=== PATIENT | female | born 1955 | race Caucasian/White ===

== ENCOUNTER 2024-03-27 11:16 | Outpatient (AMB) | payer OTHER, SELFPAY ==
--- NOTE | 2024-03-27 11:53 | MHC.PC.OV ---
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 Having open heart surgery on 04/06/24 at [facility] Required: No Allergies No Known Allergies Allergy (Verified 03/27/24 11:53) Tobacco use date assessed: 03/27/24 Fall risk assessment: No Falls in past year Last assessed Fall Risk: 03/27/24 Dental Screening Dental Screen Date: 03/27/24 Did you have a dental visit in the last 12 months?: Yes Did you have a dental problem in the last 6 months where you did not have access to dental care?: No Was dental information given to patient?: Patient has dentist HPI HPI Comments History of Present Illness Details The patient is a 68-year-old female with a medical history of severe aortic stenosis, mild pulmonary hypertension hyperlipidemia, anemia, insomnia presenting to [facility]. She is transferring from [facility]. Cardiovascular: She was recently admitted to [facility] for an elective right heart catheterization as part of AVR workup. 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 09/30/2018 colonoscopy ACCOUNTS RECEIVABLE ACCOUNTANT: Mammo-03/2023 ROS CONSTITUTIONAL: Denies weight loss, fever and chills. HEENT: Denies changes in vision and hearing. RESPIRATORY: Denies SOB and cough. CV: Denies palpitations and CP GI: Denies abdominal pain, nausea, vomiting and diarrhea. : Denies dysuria and urinary frequency. MSK: Denies new myalgia and joint pain. SKIN: Denies rash and pruritus. NEUROLOGICAL: Denies headache PSYCHIATRIC: Denies recent changes in mood. PHYSICAL EXAM: GENERAL: Alert and oriented x 3. NAD EYES: EOMI. Anicteric. HENT: Moist mucous membranes. No scleral icterus. No cervical lymphadenopathy. LUNGS: Clear to auscultation bilaterally. CARDIOVASCULAR: Regular rate and rhythm. No murmur. No JVD. ABDOMEN: Soft, non-tender +bs EXTREMITIES: No edema. Non-tender. SKIN: No rashes or lesions. Warm. NEUROLOGIC: No focal neurological deficits. CN II-XII grossly intact PSYCHIATRIC: Cooperative. Appropriate mood and affect [facility] Medical History (Updated 04/06/24 @ 09:51 by Kathy Granger MD) Aortic valve stenosis Social History Housing: House Patient Tobacco Use Status: Former Tobacco user Years Smoked: Teenage years socially e-Cigarette/Vaping Use: Never Used service: No Current occupational status: retired Cognitive needs: No Hearing needs: No Vision needs: Yes (glasses/contacts) Questionnaire PHQ-9 Over the last 2 weeks, how often have you been bothered by any of the following problems? 1. Little interest or pleasure in doing things: not at all 2. Feeling down, depressed, or hopeless: not at all 3. Trouble falling or staying asleep, or sleeping too much: more than half the days 4. Feeling tired or having little energy: not at all 5. Poor appetite or overeating: not at all 6. Feeling bad about yourself - or that you are a failure or have let yourself or your family down: not at all 7. Trouble concentrating on things, such as reading the newspaper or watching television: not at all 8. Moving or speaking so slowly that other people could have noticed. Or the opposite - being so fidgety or restless that you have been moving around a lot more than usual: not at all 9. Thoughts that you would be better off or of hurting yourself in some way: not at all Total score: 2 Depression Screening Interpretation: Negative Depression Screening Done: Yes 84018 - PHQ-9 Billing: Yes Source: Developed by Drs. Cj Mendoza, Livier Flower, Jerel Bourgeois and colleagues, with an educational chago from [employer]. Thrive Questionnaire Date Thrive assessed: 03/27/24 I am a: Patient What is your living situation today?: I have a steady place to live Within the past 12 months, did the food you bought not last and you didn't have the money to get more?: Never true Within the past 12 months, did you worry whether your food would run out before you got money to buy more?: Never true Do you have trouble paying for medicines?: No Do you have trouble getting transportation to medical appointments?: No Do you have trouble paying your heating and electricity bill?: No Do you have trouble taking care of your child, family member or friend?: No Do you have trouble with day-to-day activities such as bathing, preparing meals, shopping, managing finances, etc.?: No Are you currently unemployed and looking for a job?: No Are you interested in more education?: No Please select the resources that you would like help with: None Currently or been in a relationship where the following occur: No concerns reported THRIVE Score: 0 AUDIT C Alcohol Use Questionnaire (AUDIT-C) 1. How often do you have a drink containing alcohol?: 2-3 times a week 2. How many drinks containing alcohol do you have on a typical day when you are drinking?: 1 or 2 3. How often do you have six or more drinks on one occasion?: Never Total Score: 3 IFTIKHAR-7 AMB Questionnaire IFTIKHAR-7 Date IFTIKHAR - 7 assessed: 03/27/24 Feeling nervous, anxious, or on edge: 0 = Not at all Not being able to stop or control worryin = Not at all Worrying too much about different things: 0 = Not at all Trouble relaxin = Not at all Being so restless that it is hard to sit still: 0 = Not at all Becoming easily annoyed or irritable: 0 = Not at all Feeling afraid as if something awful might happen: 0 = Not at all Total IFTIKHAR-7 score (0-4 normal; 5-9 mild; 10-14 moderate; 15-21 severe): 0 Source: Developed by Drs. Cj Mendoza, Livier Flower, Jerel Bourgeois and colleagues, with an educational chago from [employer]. IFTIKHAR-7 Assessment Billing IFTIKHAR-7 Assessment Tool: IFTIKHAR-7 Assessment 80354 Physical exam (Primary Care) Tobacco/Smoking Status: Tobacco use Status Tobacco use date assessed 03/27/24 03/27/24 12:00 Patient Tobacco Use Status Former Tobacco user 03/27/24 12:00 e-Cigarette/Vaping Use Never Used 03/27/24 12:00 PHQ-9: PHQ-9 Score PHQ-9: Total score 2 04/06/24 09:43 Depression Screening Interpretation: Negative Thrive Assessment: Date of Thrive Assessment Date Thrive assessed 03/27/24 03/27/24 12:05 Currently or been in a relationship where the following occur: No concerns reported Coding Level of Care Code New Pt Level 5 (07056) Diagnoses Encounter to establish care Z76.89 Aortic valve stenosis, etiology of cardiac valve disease unspecified I35.0 Cardiac valve disease etiology: etiology unspecified Insomnia, unspecified type G47.00 Insomnia type: unspecified Additional Codes IFTIKHAR-7 Assessment Billing - IFTIKHAR-7 Assessment Tool: IFTIKHAR-7 Assessment 39245 ([id number]) Time Spent (min) 50 Assessment & Plan Assessment & Plan (1) Encounter to establish care: Code(s): Z76.89 - Persons encountering health services in other specified circumstances Category: Medical Plan: 68 year old to establish care. Past medical, surgical, social and family history reviewed. Chart updated. (2) Aortic valve stenosis: Code(s): I35.0 - Nonrheumatic aortic (valve) stenosis Category: Medical Qualifiers: Cardiac valve disease etiology: etiology unspecified Qualified Code(s): I35.0 - Nonrheumatic aortic (valve) stenosis Plan: Upcoming surgery scheduled. Some anxiety naturally (3) Insomnia: Code(s): G47.00 - Insomnia, unspecified Category: Medical Qualifiers: Insomnia type: unspecified Qualified Code(s): G47.00 - Insomnia, unspecified Plan: Continue trazodone Orders: Referrals ACCOUNTS RECEIVABLE ACCOUNTANT Referral Z12.4 - Encounter for screening for malignant neoplasm of cervix, Z01.419 - Encounter for gynecological examination (general) (routine) without abnormal findings Medications: New trazodone 150 mg PO BEDTIME PRN 90 tabs 3RF sleep
== END 2024-03-27 12:28 | disposition home or self-care (01) ==
PROVIDERS: PCP Internal Medicine; Visit Provider Internal Medicine
DX: I35.0 Nonrheumatic aortic (valve) stenosis (principal); G47.00 Insomnia, unspecified; Z76.89 Persons encountering health services in other specified circumstances

== ENCOUNTER → 2024-03-27 11:16 | Outpatient (BNVA) | payer OTHER, SELFPAY | PROVIDERS: Visit Provider Internal Medicine | DX: Z76.89 Persons encountering health services in other specified circumstances (principal); I35.0 Nonrheumatic aortic (valve) stenosis; G47.00 Insomnia, unspecified | CPT/HCPCS: 96127 ==

== ENCOUNTER 2024-04-02 14:55 | Outpatient (REF) | payer OTHER, SELFPAY ==
--- NOTE | ~2024-04-02 | MM_ITS ---
EXAMINATION: MM SCREENING DIGITAL BREAST TOMOSYNTHESIS, BILATERAL CLINICAL INFORMATION: Screening. Asymptomatic. COMPARISON: Mammography: Comparison is made with available priors TECHNIQUE: Digital breast mammography with tomosynthesis is performed in both the craniocaudal and mediolateral oblique views along with computer-aided detection (CAD). FINDINGS: The breasts are heterogeneously dense, which may obscure small masses (ACR BI-RADS breast composition Category c). There are no significant masses, abnormal calcifications, or other abnormalities. MM/MM tomosynthesis screening BI IMPRESSION: No mammographic evidence of malignancy. ASSESSMENT: BI-RADS BI-RADS 1 - Negative RECOMMENDATION: Routine annual mammography screening. 1 year F/U This examination should not preclude the clinical evaluation of a suspicious palpable abnormality. This patient's information was entered into a reminder system with a target due date for their next mammogram. Electronically signed by: Zina Bryant DO 04/13/2024 10:47 AM EDT
== END 2024-04-02 14:56 | disposition home or self-care (01) ==
LOC: HO.MAMMO 14:55
PROVIDERS: PCP Internal Medicine; Visit Provider Internal Medicine
DX: Z12.31 Encounter for screening mammogram for malignant neoplasm of breast (principal)
CPT/HCPCS: 77063; 77067

== ENCOUNTER → 2024-04-02 15:15 | Outpatient (BNV) | payer OTHER, SELFPAY | PROVIDERS: PCP Internal Medicine; Visit Provider Internal Medicine | DX: Z12.31 Encounter for screening mammogram for malignant neoplasm of breast (principal) | CPT/HCPCS: 77063; 77067 ==

== ENCOUNTER 2024-09-11 14:44 | Outpatient (AMB) | payer OTHER, SELFPAY ==
--- NOTE | 2024-09-11 14:47 | A.OFFPC_ITS ---
Vital Signs 09/11/24 14:51 Height 5 ft 7 in Weight 132 lb 6 oz BMI 20.7 BP 104/72 Blood Pressure Location Lt brachial Position Sitting Respiration 12 Pulse 85 Pulse Source Pulse Oximeter Pulse Oximetry (%) 97 Oxygen Delivery Method Room Air Intake Visit Reasons: 6MoFollowUp Intake Note: Six month follow up. Needs antibiotic for dentist. 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 Apparently some periprocedural afib placed on eliquis 5mg bid. Intolerable tingling discomfort of the legs on this dose so she dropped to 2.5mg twice daily and restarted her asa 81mg. She has had no issues with with dose. Insomnia: On trazodone 100 mg daily Immunology: On Zyrtec for seasonal allergies. 09/30/2018 colonoscopy-10 year repeat. COMMUNITY RELATIONS REP: due Mammo-03/2024 ROS CONSTITUTIONAL: Denies weight loss, fever and chills. HEENT: Denies changes in vision and hearing. RESPIRATORY: Denies SOB and cough. CV: Denies palpitations and CP GI: Denies abdominal pain, nausea, vomiting and diarrhea. : Denies dysuria and urinary frequency. MSK: Denies new myalgia and joint pain. SKIN: Denies rash and pruritus. NEUROLOGICAL: Denies headache PSYCHIATRIC: Denies recent changes in mood. PHYSICAL EXAM: GENERAL: Alert and oriented x 3. NAD EYES: EOMI. Anicteric. HENT: Moist mucous membranes. No scleral icterus. No cervical lymphadenopathy. LUNGS: Clear to auscultation bilaterally. CARDIOVASCULAR: Regular rate and rhythm. No murmur. No JVD. ABDOMEN: Soft, non-tender +bs EXTREMITIES: No edema. Non-tender. SKIN: No rashes or lesions. Warm. NEUROLOGIC: No focal neurological deficits. CN II-XII grossly intact PSYCHIATRIC: Cooperative. Appropriate mood and affect [facility] Medical History Aortic valve stenosis Surgical History H/O heart surgery Social History Housing: House Alcohol intake: current Patient Tobacco Use Status: Former Tobacco user Years Smoked: Teenage years socially e-Cigarette/Vaping Use: Never Used service: No Current occupational status: retired Cognitive needs: No Hearing needs: No Vision needs: Yes (glasses/contacts) Questionnaire PHQ-9 Over the last 2 weeks, how often have you been bothered by any of the following problems? 1. Little interest or pleasure in doing things: not at all 2. Feeling down, depressed, or hopeless: not at all 3. Trouble falling or staying asleep, or sleeping too much: not at all 4. Feeling tired or having little energy: not at all 5. Poor appetite or overeating: not at all 6. Feeling bad about yourself - or that you are a failure or have let yourself or your family down: not at all 7. Trouble concentrating on things, such as reading the newspaper or watching television: not at all 8. Moving or speaking so slowly that other people could have noticed. Or the opposite - being so fidgety or restless that you have been moving around a lot more than usual: not at all 9. Thoughts that you would be better off or of hurting yourself in some way: not at all Total score: 0 Depression Screening Interpretation: Negative Depression Screening Done: Yes 23529 - PHQ-9 Billing: Yes Source: Developed by Drs. Cj Mendoza, Livier Flower, Jerel Bourgeois and colleagues, with an educational chago from [employer]. Thrive Questionnaire Date Thrive assessed: 09/09/24 I am a: Patient What is your living situation today?: I have a steady place to live Within the past 12 months, did the food you bought not last and you didn't have the money to get more?: Never true Within the past 12 months, did you worry whether your food would run out before you got money to buy more?: Never true Do you have trouble paying for medicines?: No Do you have trouble getting transportation to medical appointments?: No Do you have trouble paying your heating and electricity bill?: No Do you have trouble taking care of your child, family member or friend?: No Do you have trouble with day-to-day activities such as bathing, preparing meals, shopping, managing finances, etc.?: No Are you currently unemployed and looking for a job?: No Are you interested in more education?: No Please select the resources that you would like help with: None Currently or been in a relationship where the following occur: No concerns reported THRIVE Score: 0 AUDIT C Alcohol Use Questionnaire (AUDIT-C) 1. How often do you have a drink containing alcohol?: 2-3 times a week 2. How many drinks containing alcohol do you have on a typical day when you are drinking?: 1 or 2 3. How often do you have six or more drinks on one occasion?: Never Total Score: 3 IFTIKHAR-7 AMB Questionnaire IFTIKHAR-7 Date IFTIKHAR - 7 assessed: 09/11/24 Feeling nervous, anxious, or on edge: 0 = Not at all Not being able to stop or control worryin = Not at all Worrying too much about different things: 0 = Not at all Trouble relaxin = Not at all Being so restless that it is hard to sit still: 0 = Not at all Becoming easily annoyed or irritable: 0 = Not at all Feeling afraid as if something awful might happen: 0 = Not at all Total IFTIKHAR-7 score (0-4 normal; 5-9 mild; 10-14 moderate; 15-21 severe): 0 Source: Developed by Drs. Cj Mendoza, Livier Flower, Jerel Bourgeois and colleagues, with an educational chago from [employer]. IFTIKHAR-7 Assessment Billing IFTIKHAR-7 Assessment Tool: IFTIKHAR-7 Assessment 42099 Physical exam (Primary Care) Vital Signs: Last Vital Signs Pulse 85 09/11/24 14:51 Resp 12 09/11/24 14:51 BP 104/72 09/11/24 14:51 Pulse Ox 97 09/11/24 14:51 Oxygen Delivery Method Room Air 09/11/24 14:51 BMI result Body Mass Index 20.7 Tobacco/Smoking Status: Tobacco use Status Tobacco use date assessed 09/11/24 09/11/24 14:55 Patient Tobacco Use Status Former Tobacco user 09/11/24 15:06 e-Cigarette/Vaping Use Never Used 09/11/24 15:06 PHQ-9: PHQ-9 Score PHQ-9: Total score 0 09/11/24 15:06 Depression Screening Interpretation: Negative Thrive Assessment: Date of Thrive Assessment Date Thrive assessed 09/09/24 09/11/24 14:49 Currently or been in a relationship where the following occur: No concerns reported Coding Level of Care Code Est Pt Level 4 (71388) Complex EM visit Add On G2211 Diagnoses Aortic valve stenosis, etiology of cardiac valve disease unspecified I35.0 Cardiac valve disease etiology: etiology unspecified Insomnia, unspecified type G47.00 Insomnia type: unspecified Additional Codes IFTIKHAR-7 Assessment Billing - IFTIKHAR-7 Assessment Tool: IFTIKHAR-7 Assessment 36205 ([id number]) PHQ-9 - 41850 - PHQ-9 Billing: Yes ([id number]) Assessment & Plan Assessment & Plan (1) Aortic valve stenosis: Code(s): I35.0 - Nonrheumatic aortic (valve) stenosis Category: Medical Qualifiers: Cardiac valve disease etiology: etiology unspecified Qualified Code(s): I35.0 - Nonrheumatic aortic (valve) stenosis (2) Insomnia: Code(s): G47.00 - Insomnia, unspecified Category: Medical Qualifiers: Insomnia type: unspecified Qualified Code(s): G47.00 - Insomnia, unspecified Plan s/p AVR, paroxysmal afib. Following wit cardiology Dental prophylaxis sent Insomnia-stable on trazodone. Labs ordered Orders: Orders Complete Blood Count Man Dif Today G47.00 - Insomnia, unspecified, I35.0 - Nonrheumatic aortic (valve) stenosis, Z13.220 - Encounter for screening for lipoid disorders, Z13.228 - Encounter for screening for other metabolic disorders TSH reflex Free T4 Today G47.00 - Insomnia, unspecified, I35.0 - Nonrheumatic aortic (valve) stenosis, Z13.220 - Encounter for screening for lipoid disorders, Z13.228 - Encounter for screening for other metabolic disorders Comprehensive Met. Panel Today G47.00 - Insomnia, unspecified, I35.0 - Nonrheumatic aortic (valve) stenosis, Z13.220 - Encounter for screening for lipoid disorders, Z13.228 - Encounter for screening for other metabolic disorders Lipid Panel Today G47.00 - Insomnia, unspecified, I35.0 - Nonrheumatic aortic (valve) stenosis, Z13.220 - Encounter for screening for lipoid disorders, Z13.228 - Encounter for screening for other metabolic disorders Referrals COMMUNITY RELATIONS REP Referral Z12.4 - Encounter for screening for malignant neoplasm of cervix Medications: New amoxicillin one hour prior to dental work 2,000 mg (4 x 500 mg) PO ONCE PRN 20 tabs 1RF dental work I35.0 - Nonrheumatic aortic (valve) stenosis
[2024-09-11 14:51] VITALS: BP 104/72; PULSE 85; RESP 12; O2SAT 97; BMI 20.7
--- OUTSIDE RECORDS SUMMARY | 2024-09-11 17:36 | XMS_ITS | Encounter Summary ---
Author Organization [facility] Address [address] [place] [address] Care Team Providers Care Machined Parts Quality Inspector Name Role Phone Joseph Jorge Lubin MD Unavailable [phone] Billy Dorsey MD Primary Care Provider [phone] Angelina Saldana MD Unavailable [phone] Encounter Details Date Type Department Care Team (Late st Contact Info) Description 07/12/2024 Abstract [facility] Cardiothoracic Surgery [address] [id number] Sophia Fuentes, [place] [address] [address] Social History Tobacco Use Types Packs/Day Years Used Date Smoking Tobacco: Never Smokeless Tobacco: Never Alcohol Use Standard Drinks/Week Comments Yes 7 (1 standard drink = 0.6 oz pure alcohol) 1 glass of wine with dinner, occ beer on weekends [facility] Utilities Answer Date Recorded In the past 12 months has [employer], gas, oil, or water [employer] threatened to shut off services in your home? No 04/07/2024 AUDIT-C Answer Date Recorded Q1: How often do you have a drink containing alcohol? 4 or more times a week 03/26/2024 Q2: How many drinks containi ng alcohol do you have on a typical day when you are drinking? 1 or 2 Q3: How often do you have si x or more drinks on one occasion? Never 03/26/2024 Overall Financial Resource Strain (CARDIA) Answe r Date Recorded How hard is it for you to pa y for the very basics like food, housing, medical care, and heating? Not hard at all 04/07/2024 PHQ-2 Answer Date Recorded PHQ-2 Total Score 0 04/06/2024 Hunger Vital Sign Answer Date Recorded Within the past 12 months, y ou worried that your food would run out before you got the money to buy more. Never true 04/07/20 24 Within the past 12 months, t he food you bought just didn't last and you didn't have money to get more. Never true 04/07/2024 PRAPARE - Transportation Answer Date Re corded In the past 12 months, has l ack of transportation kept you from medical appointments or from getting medications? No 03/14 In the past 12 months, has l ack of transportation kept you from meetings, work, or from getting things needed for daily living? No 04/07/2024 Housing Stability Vital Sign Answer Sagar e Recorded In the last 12 months, was t here a time when you were not able to pay the mortgage or rent on time? No 04/07/2024 In the last 12 months, how many places have you lived? 1 04/07/2024 In the last 12 months, was t here a time when you did not have a steady place to sleep or slept in a halfway (including now)? No 04/07/2024 Sex and Gender Information Value Date Recorded Sex Assigned at Female 12/19/2023 8:48 PM EDT Gender Identity Female 12/19/2023 8:48 PM EDT Sexual Orientation Heterosexual (straight) 12/18 8:48 PM EDT documented as of this encounter Plan of Treatment Upcoming Encounters Date Type Department Care Team (Late st Contact Info) Description 01/14/2025 9:40 AM EDT Office Visit [facility] [place] [address] [phone] Jorge Ruiz MD [address] [address] documented as of this encounter Visit Diagnoses Not on filedocumented in this encounter Care Teams Machined Parts Quality Inspector Relationship Specialty Start Date End Date Billy Dorsey MD [address] [place] [address] [place] [address] PCP - General Family Medicine 02/03/24 Jorge Ruiz MD [address] [place] [id number] Primary Flow Machine Operator Cardiovascular Disease 01/09/24 Angelina Saldana MD [address] [place] [id number] Consulting Provider Surgery, Cardiac 05/01/24 documented as of this encounter
--- OUTSIDE RECORDS SUMMARY | 2024-09-11 17:36 | XMS_ITS ---
Author Name [facility] Organization Unknown Results Test Name/Text Value Interpretation Date Range Source Phosphate SerPl-mCnc 1.9mg/dL Below low normal [id number] 2.7 - 4.5 [facility] Magnesium SerPl-mCnc 1.9mg/dL Normal [id number] 1.6 - 2.7 [facility] Calcium SerPl-mCnc 8.2mg/dL Below low normal 116499460675 8 .7 - 10.5 [facility] BUN SerPl-mCnc 13mg/dL Normal [id number] 8 - 21 HH CCT Creat SerPl-mCnc 0.5mg/dL Normal [id number] 0.4 - 1.1 H[facility] GFR/BSA.pred SerPlBld [id number] 90 Normal [id number] 59 - [facility]HCCT Chloride SerPl-sCnc 101mmol/L Normal [id number] 98 - 10 7 [facility] BUN/Creat SerPl 26Ratio Above high normal [id number] 10 - 25 [facility] CO2 SerPl-sCnc 24mmol/L Normal [id number] 22 - 33 HH CCT Anion Gap Bld-sCnc 11 Normal [id number] 7 - 17 [facility] Potassium SerPl-sCnc 3.7mmol/L Normal [id number] 3.4 - 5.3 [facility] Glucose SerPl-mCnc 145mg/dL Above high normal 157916863693 65 - 99 [facility] Sodium SerPl-sCnc 136mmol/L Normal [id number] 136 - 145 [facility] RBC num Bld Auto 3.1Mil/uL Below low normal [id number] 4 - 5.4 [facility] RDW RBC Auto-Rto 12.5% Normal [id number] 11.5 - 14. 5 [facility] PMV Bld Auto 10.7fL Normal [id number] 7.5 - 12.[address] MCH RBC Qn Auto 28.7pg Normal [id number] 27 - 31 H [facility] WBC num Bld Auto 7.7Thou/uL Normal [id number] 4 - 11 [facility] Platelet num Bld Auto 145Thou/uL Below low normal 4805914575 18 150 - 450 [facility]CT MCHC RBC Auto-mCnc 31.2g/dL Normal [id number] 30 - 36 [facility] Hct VFr Bld Auto 28.5% Below low normal [id number] 35 - 47 [facility] MCV RBC Auto 92fL Normal [id number] 80 - 100 HHCC T Hgb Bld-mCnc 8.9g/dL Below low normal [id number] 11.7 - 15.7 H[facility]CT RBC num Bld Auto 3.01Mil/uL Below low normal [id number] 4 - 5.4 [facility] RDW RBC Auto-Rto 12.6% Normal [id number] 11.5 - 14. 5 H[facility]CT PMV Bld Auto 11fL Normal [id number] 7.5 - 12.[address] MCH RBC Qn Auto 29.6pg Normal [id number] 27 - 31 H HCCT WBC num Bld Auto 6.6Thou/uL Normal [id number] 4 - 11 [facility] Platelet num Bld Auto 88Thou/uL Below low normal [id number] 9 150 - 450 [facility]CT MCHC RBC Auto-mCnc 31.7g/dL Normal [id number] 30 - 36 [facility] Immature Platelet Fraction 9.3% Above high normal [id number] 1.2 - 8.6 HHCCT Hct VFr Bld Auto 28.1% Below low normal [id number] 35 - 47 H[facility]CT MCV RBC Auto 93fL Normal [id number] 80 - 100 HHCC T Hgb Bld-mCnc 8.9g/dL Below low normal [id number] 11.7 - 15.7 H[facility]CT Calcium SerPl-mCnc 8.5mg/dL Below low normal [id number] 8 .7 - 10.5 [facility]CT BUN SerPl-mCnc 12mg/dL Normal [id number] 8 - 21 HH CCT Creat SerPl-mCnc 0.6mg/dL Normal [id number] 0.4 - 1.1 H[facility]CT GFR/BSA.pred SerPlBld YCM-[id number]-IoOFpu 90 Normal [id number] 59 - HHCCT Chloride SerPl-sCnc 101mmol/L Normal [id number] 98 - 10 7 HHCCT BUN/Creat SerPl 20Ratio Normal [id number] 10 - 25 H HCCT CO2 SerPl-sCnc 26mmol/L Normal [id number] 22 - 33 HH CCT Anion Gap Bld-sCnc 10 Normal [id number] 7 - 17 H[facility]CT Potassium SerPl-sCnc 4.1mmol/L Normal [id number] 3.4 - 5.3 [facility]CT Glucose SerPl-mCnc 107mg/dL Above high normal 232346524497 65 - 99 H[facility]CT Sodium SerPl-sCnc 137mmol/L Normal [id number] 136 - 145 H[facility]CT Phosphate SerPl-mCnc 2.1mg/dL Below low normal [id number] 2.7 - 4.5 HHCCT Magnesium SerPl-mCnc 2.2mg/dL Normal [id number] 1.6 - 2.7 HHCCT POC Glucose 126mg/dL Above high normal [id number] 65 - 99 H[facility]CT Calcium SerPl-mCnc 8.2mg/dL Below low normal [id number] 8 .7 - 10.5 HHCCT BUN SerPl-mCnc 12mg/dL Normal 8 - 21 HH CCT Creat SerPl-mCnc 0.5mg/dL Normal 0.4 - 1.1 HHCCT GFR/BSA.pred SerPlBld [id number]-VTP-[id number] 90 Normal [id number] 59 - HHCCT Chloride SerPl-sCnc 99mmol/L Normal [id number] 98 - 10 7 HHCCT BUN/Creat SerPl 24Ratio Normal [id number] 10 - 25 H HCCT CO2 SerPl-sCnc 25mmol/L Normal [id number] 22 - 33 HH CCT Anion Gap Bld-sCnc 10 Normal [id number] 7 - 17 H[facility]CT Potassium SerPl-sCnc 4.3mmol/L Normal [id number] 3.4 - 5.3 HHCCT Glucose SerPl-mCnc 131mg/dL Above high normal [id number] 65 - 99 HHCCT Sodium SerPl-sCnc 134mmol/L Below low normal 482693369814 13 6 - 145 HHCCT Phosphate SerPl-mCnc 2mg/dL Below low normal [id number] 2.7 - 4.5 H[facility]CT Magnesium SerPl-mCnc 1.8mg/dL Normal [id number] 1.6 - 2.7 HHCCT RBC num Bld Auto 3.12Mil/uL Below low normal [id number] 4 - 5.4 H[facility]CT RDW RBC Auto-Rto 12.9% Normal [id number] 11.5 - 14. 5 H[facility]CT PMV Bld Auto 10.8fL Normal [id number] 7.5 - 12.[address] MCH RBC Qn Auto 29.5pg Normal [id number] 27 - 31 H HCCT WBC num Bld Auto 12.7Thou/uL Above high normal [id number] 4 - 11 [facility]CT Platelet num Bld Auto 91Thou/uL Below low normal 97980929507 9 150 - 450 H[facility]CT MCHC RBC Auto-mCnc 32.7g/dL Normal [id number] 30 - 36 H[facility]CT Immature Platelet Fraction 10.6% Above high normal 973753080532 1.2 - 8.6 HHCCT Hct VFr Bld Auto 28.1% Below low normal [id number] 35 - 47 HHCCT MCV RBC Auto 90fL Normal [id number] 80 - 100 HHCC T Hgb Bld-mCnc 9.2g/dL Below low normal [id number] 11.7 - 15.7 HHCCT POC Glucose 129mg/dL Above high normal [id number] 65 - 99 [facility]CT POC Glucose 129mg/dL Above high normal 727520408180 65 - 99 H[facility]CT POC Glucose 133mg/dL Above high normal 290708932284 65 - 99 H[facility]CT Magnesium SerPl-mCnc 2mg/dL Normal [id number] 1.6 - 2.7 HHCCT POC Glucose 141mg/dL Above high normal [id number] 65 - 99 HHCCT Magnesium SerPl-mCnc 1.8mg/dL Normal [id number] 1.6 - 2.7 HHCCT Phosphate SerPl-mCnc 3mg/dL Normal [id number] 2.7 - 4.5 H[facility]CT Trigl SerPl-mCnc 52mg/dL Normal [id number] - 150 H[facility]CT Calcium SerPl-mCnc 7.4mg/dL Below low normal [id number] 8 .7 - 10.5 HHCCT BUN SerPl-mCnc 9mg/dL Normal [id number] 8 - 21 HH CCT Creat SerPl-mCnc 0.4mg/dL Normal [id number] 0.4 - 1.1 HHCCT GFR/BSA.pred SerPlBld XFX-ARI-HyMUpl 90 Normal [id number] 59 - HHCCT Chloride SerPl-sCnc 103mmol/L Normal [id number] 98 - 10 7 HHCCT BUN/Creat SerPl 23Ratio Normal [id number] 10 - 25 H HCCT CO2 SerPl-sCnc 25mmol/L Normal [id number] 22 - 33 HH CCT Anion Gap Bld-sCnc 9 Normal [id number] 7 - 17 H[facility]CT Potassium SerPl-sCnc 4.1mmol/L Normal [id number] 3.4 - 5.3 HHCCT Glucose SerPl-mCnc 145mg/dL Above high normal [id number] 65 - 99 H[facility]CT Sodium SerPl-sCnc 137mmol/L Normal [id number] 136 - 145 H[facility]CT RBC num Bld Auto 3.4Mil/uL Below low normal [id number] 4 - 5.4 H[facility]CT RDW RBC Auto-Rto 12.6% Normal [id number] 11.5 - 14. 5 H[facility]CT PMV Bld Auto 10.4fL Normal [id number] 7.5 - 12.[address] MCH RBC Qn Auto 29.1pg Normal [id number] 27 - 31 H HCCT WBC num Bld Auto 10.1Thou/uL Normal [id number] 4 - 11 [facility]CT Platelet num Bld Auto 114Thou/uL Below low normal [id number] 41 150 - 450 H[facility]CT MCHC RBC Auto-mCnc 33.2g/dL Normal [id number] 30 - 36 H[facility]CT Immature Platelet Fraction 6.3% Normal [id number] 1.2 - 8.6 HHCCT Hct VFr Bld Auto 29.8% Below low normal [id number] 35 - 47 HHCCT MCV RBC Auto 88fL Normal [id number] 80 - 100 HHCC T Hgb Bld-mCnc 9.9g/dL Below low normal [id number] 11.7 - 15.7 HHCCT POC Glucose 140mg/dL Above high normal [id number] 65 - 99 H[facility]CT Potassium SerPl-sCnc 4.4mmol/L Normal [id number] 3.4 - 5.3 HHCCT POC Glucose 139mg/dL Above high normal 757829457525 65 - 99 HHCCT Hct VFr Bld Auto 30.2% Below low normal [id number] 35 - 47 HHCCT pCO2, Arterial 41mmHG Normal [id number] 32 - 45 HH CCT pH, Arterial 7.43 Normal [id number] 7.35 - 7.45 HH CCT Total CO2, Arterial 27mmol/L Normal [id number] 22 - 28 HHCCT pO2, Arterial 123mmHG Above high normal [id number] 75 - 95 HHCCT Base excess BldA Calc-sCnc 2.1mmol/L Normal [id number] HHCCT Respiratory Information NASAL 4 L/MIN Normal [id number] HHCCT pCO2, Arterial 33mmHG Normal [id number] 32 - 45 HH CCT pH, Arterial 7.47 Above high normal [id number] 7.35 - 7.45 HHCCT Total CO2, Arterial 25mmol/L Normal [id number] 22 - 28 HHCCT pO2, Arterial 174mmHG Above high normal 429844922241 75 - 95 H[facility]CT Base excess BldA Calc-sCnc 1.2mmol/L Normal [id number] HHCCT P/F Ratio 435 Normal [id number] HHCCT Potassium SerPl-sCnc 3.3mmol/L Below low normal [id number] 3.4 - 5.3 HHCCT Respiratory Information VENT 40% Normal HHCCT pCO2, Arterial 24mmHG Below low normal 32 - 45 HHCCT pH, Arterial 7.59 Above high normal 7.35 - 7.45 HHCCT Total CO2, Arterial 24mmol/L Normal 22 - 28 HHCCT pO2, Arterial 193mmHG Above high normal 75 - 95 H[facility]CT Base excess BldA Calc-sCnc 2.4mmol/L Normal [facility] Ratio 483 Normal [id number] [facility] POC Glucose 123mg/dL Above high normal 762406751476 65 - 99 H[facility]CT Respiratory Information VENT 40% Normal [id number] HHCCT RBC num Bld Auto 3.02Mil/uL Below low normal [id number] 4 - 5.4 HHCCT RDW RBC Auto-Rto 12.4% Normal [id number] 11.5 - 14. 5 HHCCT PMV Bld Auto 10.5fL Normal 7.5 - 12.[address] MCH RBC Qn Auto 29.8pg Normal [id number] 27 - 31 H HCCT WBC num Bld Auto 8.8Thou/uL Normal [id number] 4 - 11 H[facility]CT Platelet num Bld Auto 92Thou/uL Below low normal [id number] 1 150 - 450 H[facility]CT MCHC RBC Auto-mCnc 33.8g/dL Normal [id number] 30 - 36 HHCCT Immature Platelet Fraction 6.1% Normal [id number] 1.2 - 8.6 HHCCT Hct VFr Bld Auto 26.6% Below low normal [id number] 35 - 47 HHCCT MCV RBC Auto 88fL Normal [id number] 80 - 100 HHCC T Hgb Bld-mCnc 9g/dL Below low normal 622475107159 11.7 - 15.7 HHCCT Calcium SerPl-mCnc 7.8mg/dL Below low normal 8 .7 - 10.5 HHCCT BUN SerPl-mCnc 12mg/dL Normal 8 - 21 HH CCT Creat SerPl-mCnc 0.5mg/dL Normal 0.4 - 1.1 HHCCT GFR/BSA.pred SerPlBld GRY-QYW-OrAVvr 90 Normal 59 - HHCCT Chloride SerPl-sCnc 106mmol/L Normal 98 - 10 7 HHCCT BUN/Creat SerPl 24Ratio Normal 10 - 25 H HCCT CO2 SerPl-sCnc 23mmol/L Normal 22 - 33 HH CCT Anion Gap Bld-sCnc 12 Normal 7 - 17 HHCCT Potassium SerPl-sCnc 4mmol/L Normal 3.4 - 5.3 HHCCT Glucose SerPl-mCnc 126mg/dL Above high normal 65 - 99 HHCCT Sodium SerPl-sCnc 141mmol/L Normal 136 - 145 HHCCT pCO2, Arterial 36mmHG Normal 32 - 45 HH CCT pH, Arterial 7.47 Above high normal 7.35 - 7.45 HHCCT Total CO2, Arterial 27mmol/L Normal 22 - 28 HHCCT pO2, Arterial 186mmHG Above high normal 75 - 95 HHCCT Base excess BldA Calc-sCnc 2.5mmol/L Normal [id number] HHCCT P/F Ratio 186 Normal [id number] HHCCT Fibrin Function,Heparinized 2.2minutes Normal 1 - 3 HHCCT Angle, Heparinized 61.8degrees Normal 53 - 7 2 HHCCT %Lysis 30 min,Heparinized 0.7% Normal 0 - 8 HHCCT Reaction Time,Heparinized 8.5minutes Normal [id number] 5 - 10 H[facility]CT Max Amplitude,Heparinized 54.9mm Normal [id number] 50 - 70 HHCCT Respiratory Information VENT 100% Normal 643984960139 HHCCT ISTAT Arterial Total CO2 27mmol/L Normal [id number] 22 - 28 HHCCT ISTAT Arterial PO2 464mmHg Above high normal [id number] 75 - 95 HHCCT ISTAT Arterial pH 7.42 Normal [id number] 7.35 - 7. 45 HHCCT ISTAT Arterial HCO3 26.1mmol/L Above high normal [id number] 1 22 - 26 HHCCT ISTAT Base Excess 2mmol/L Normal [id number] HHCCT ISTAT O2 Saturation 100% Above high normal 719323234193 94 - 97 HHCCT ISTAT Arterial PCO2 39.8mmHg Normal [id number] 32 - 45 HHCCT ISTAT Sample Type Normal [id number] HHCCT ISTAT Hemoglobin 6.8gm/dL Below low normal [id number] 11. 7 - 15.7 HHCCT ISTAT Potassium 4.2mmol/L Normal [id number] 3.4 - 5.3 H HCCT ISTAT Sodium 140mmol/L Normal [id number] 136 - 145 HHCC T ISTAT Ionized Calcium 1.06mmol/L Below low normal [id number] 11 1.17 - 1.33 HHCCT ISTAT Hematocrit 20% Below low normal 790534893330 35 - 47 HHCCT ISTAT Glucose 132mg/dL Above high normal [id number] 65 - 99 HHCCT POC Glucose 138mg/dL Above high normal [id number] 65 - 99 HHCCT ISTAT Hemoglobin 8.2gm/dL Below low normal [id number] 11. 7 - 15.7 HHCCT ISTAT Arterial Total CO2 28mmol/L Normal [id number] 22 - 28 HHCCT ISTAT Arterial PO2 435mmHg Above high normal 890486866161 75 - 95 H[facility]CT ISTAT Arterial pH 7.4 Normal [id number] 7.35 - 7. 45 HHCCT ISTAT Arterial HCO3 26.5mmol/L Above high normal 27390501697 1 22 - 26 HHCCT ISTAT Base Excess 2mmol/L Normal [id number] HHCCT ISTAT O2 Saturation 100% Above high normal 759151912649 94 - 97 HHCCT ISTAT Arterial PCO2 42.6mmHg Normal [id number] 32 - 45 HHCCT ISTAT Sample Type Normal 513479598766 HHCCT ISTAT Glucose 135mg/dL Above high normal 937001941451 65 - 99 HHCCT ISTAT Sodium 141mmol/L Normal [id number] 136 - 145 HHCC T ISTAT Potassium 3.9mmol/L Normal [id number] 3.4 - 5.3 H HCCT ISTAT Hematocrit 24% Below low normal 059045193822 35 - 47 HHCCT ISTAT Ionized Calcium 1.16mmol/L Below low normal [id number] 11 1.17 - 1.33 HHCCT ISTAT Arterial Total CO2 26mmol/L Normal [id number] 22 - 28 HHCCT ISTAT Arterial PO2 499mmHg Above high normal 950562424225 75 - 95 HHCCT ISTAT Arterial pH 7.44 Normal [id number] 7.35 - 7. 45 HHCCT ISTAT Arterial HCO3 25.2mmol/L Normal [id number] 22 - 2 6 HHCCT ISTAT Base Excess 1mmol/L Normal [id number] HHCCT ISTAT O2 Saturation 100% Above high normal 174341554601 94 - 97 HHCCT ISTAT Arterial PCO2 37.2mmHg Normal [id number] 32 - 45 HHCCT ISTAT Sample Type Normal 918216494528 HHCCT ISTAT Potassium 4.2mmol/L Normal [id number] 3.4 - 5.3 H HCCT ISTAT Sodium 141mmol/L Normal [id number] 136 - 145 HHCC T ISTAT Ionized Calcium 0.9mmol/L Below low normal 69915227847 0 1.17 - 1.33 HHCCT ISTAT Hematocrit 20% Below low normal [id number] 35 - 47 HHCCT ISTAT Glucose 146mg/dL Above high normal 201185927298 65 - 99 HHCCT ISTAT Hemoglobin 6.8gm/dL Below low normal 906875379640 11. 7 - 15.7 HHCCT ISTAT Hematocrit 21% Below low normal [id number] 35 - 47 HHCCT ISTAT Ionized Calcium 0.81mmol/L Below low normal 2956184400 10 1.17 - 1.33 HHCCT ISTAT Sodium 139mmol/L Normal [id number] 136 - 145 HHCC T ISTAT Hemoglobin 7.1gm/dL Below low normal 887250882901 11. 7 - 15.7 HHCCT ISTAT Glucose 166mg/dL Above high normal 021778058201 65 - 99 H[facility]CT ISTAT Arterial Total CO2 27mmol/L Normal 484300825744 22 - 28 H[facility]CT ISTAT Arterial PO2 283mmHg Above high normal 654611828192 75 - 95 HHCCT ISTAT Arterial pH 7.51 Above high normal 558095113416 7 .35 - 7.45 HHCCT ISTAT Arterial HCO3 26.4mmol/L Above high normal 10738392301 0 22 - 26 HHCCT ISTAT Base Excess 3mmol/L Normal 551630975701 HHCCT ISTAT O2 Saturation 100% Above high normal 251463060422 94 - 97 HHCCT ISTAT Arterial PCO2 33mmHg Normal [id number] 32 - 45 HHCCT ISTAT Sample Type Normal 539092511921 HHCCT ISTAT Potassium 4.9mmol/L Normal 587818500952 3.4 - 5.3 H HCCT ISTAT Potassium 4.9mmol/L Normal 614160833270 3.4 - 5.3 H HCCT ISTAT Hemoglobin 7.5gm/dL Below low normal 717783069276 11. 7 - 15.7 HHCCT ISTAT Ionized Calcium 0.8mmol/L Below low normal 75268007846 9 1.17 - 1.33 HHCCT ISTAT Hematocrit 22% Below low normal 165656197153 35 - 47 HHCCT ISTAT Glucose 179mg/dL Above high normal 232262286208 65 - 99 HHCCT ISTAT Arterial Total CO2 28mmol/L Normal 235653716053 22 - 28 HHCCT ISTAT Arterial PO2 364mmHg Above high normal 494300292523 75 - 95 HHCCT ISTAT Arterial pH 7.58 Above high normal 690438269575 7 .35 - 7.45 HHCCT ISTAT Arterial HCO3 27.1mmol/L Above high normal 35587953564 9 22 - 26 HHCCT ISTAT Base Excess 5mmol/L Normal 084468871933 HHCCT ISTAT O2 Saturation 100% Above high normal 781283401345 94 - 97 HHCCT ISTAT Arterial PCO2 28.8mmHg Below low normal 860585564077 32 - 45 HHCCT ISTAT Sample Type Normal 931845568873 HHCCT ISTAT Sodium 137mmol/L Normal 282154139178 136 - 145 HHCC T ISTAT Activated Clotting Time,[place] 507seconds Above high normal 962694904051 74 - 137 HH CCT ISTAT Activated Clotting Time,[place] 122seconds Normal 472711940247 74 - 137 HHCCT ISTAT Activated Clotting Time,[place] 739seconds Above high normal 409826636224 74 - 137 HH CCT ISTAT Activated Clotting Time,[place] 415seconds Above high normal 772401702824 74 - 137 HH CCT ISTAT Activated Clotting Time,[place] 782seconds Above high normal 491552903593 74 - 137 HH CCT ISTAT Activated Clotting Time,[place] 116seconds Normal [id number] 74 - 137 HHCCT ISTAT Activated Clotting Time,[place] 965seconds Above high normal 440913131653 74 - 137 HH CCT ISTAT Activated Clotting Time,[place] 122seconds Normal 262605481596 74 - 137 HHCCT ISTAT Activated Clotting Time,[place] 843seconds Above high normal 451830827487 74 - 137 HH CCT ISTAT Activated Clotting Time,[place] 128seconds Normal 488765903160 74 - 137 HHCCT ISTAT Activated Clotting Time,[place] 379seconds Above high normal 397505222732 74 - 137 HH CCT ISTAT Activated Clotting Time,[place] 525seconds Above high normal 430249088366 74 - 137 HH CCT ISTAT Hemoglobin 6.8gm/dL Below low normal 485545455478 11. 7 - 15.7 HHCCT ISTAT Glucose 161mg/dL Above high normal 426312622804 65 - 99 HHCCT ISTAT Sodium 138mmol/L Normal [id number] 136 - 145 HHCC T ISTAT Ionized Calcium 0.77mmol/L Below low normal 2117524780 08 1.17 - 1.33 HHCCT ISTAT Arterial Total CO2 31mmol/L Above high normal 742534458701 22 - 28 HHCCT ISTAT Arterial PO2 470mmHg Above high normal 565593710881 75 - 95 HHCCT ISTAT Arterial pH 7.54 Above high normal 101559822466 7 .35 - 7.45 HHCCT ISTAT Arterial HCO3 29.9mmol/L Above high normal 03502541302 8 22 - 26 HHCCT ISTAT Base Excess 7mmol/L Normal 921140195172 HHCCT ISTAT O2 Saturation 100% Above high normal 653862130534 94 - 97 HHCCT ISTAT Arterial PCO2 35.1mmHg Normal 891068326561 32 - 45 HHCCT ISTAT Sample Type Normal 592044850737 HHCCT ISTAT Hematocrit 20% Below low normal 573758343752 35 - 47 HHCCT ISTAT Potassium 4.6mmol/L Normal 818881549387 3.4 - 5.3 H HCCT ISTAT Hemoglobin 7.8gm/dL Below low normal 922859642778 11. 7 - 15.7 HHCCT ISTAT Sodium 136mmol/L Normal 021921889843 136 - 145 HHCC T ISTAT Potassium 4.2mmol/L Normal 176271526880 3.4 - 5.3 H HCCT ISTAT Ionized Calcium 0.81mmol/L Below low normal [id number] 07 1.17 - 1.33 HHCCT ISTAT Hematocrit 23% Below low normal 519912023059 35 - 47 HHCCT ISTAT Glucose 129mg/dL Above high normal 582471004442 65 - 99 HHCCT ISTAT Arterial Total CO2 23mmol/L Normal 716431838797 22 - 28 HHCCT ISTAT Arterial PO2 424mmHg Above high normal 832078890023 75 - 95 HHCCT ISTAT Arterial pH 7.47 Above high normal 878881528376 7 .35 - 7.45 HHCCT ISTAT Arterial HCO3 22.5mmol/L Normal 160555947670 22 - 2 6 HHCCT ISTAT Base Excess Normal 759449561317 HHCCT ISTAT O2 Saturation 100% Above high normal 600979923233 94 - 97 HHCCT ISTAT Arterial PCO2 30.7mmHg Below low normal 451358876555 32 - 45 HHCCT ISTAT Sample Type Normal 255963463104 HHCCT ISTAT Hematocrit 24% Below low normal 125204480609 35 - 47 HHCCT ISTAT Hemoglobin 8.2gm/dL Below low normal 754771115297 11. 7 - 15.7 HHCCT ISTAT Glucose 136mg/dL Above high normal 853019771118 65 - 99 HHCCT ISTAT Arterial Total CO2 26mmol/L Normal 463015486218 22 - 28 HHCCT ISTAT Arterial PO2 522mmHg Above high normal 356271693812 75 - 95 HHCCT ISTAT Arterial pH 7.41 Normal 908675848524 7.35 - 7. 45 HHCCT ISTAT Arterial HCO3 25mmol/L Normal [id number] 22 - 26 HHCCT ISTAT Base Excess 0mmol/L Normal 595071752408 HHCCT ISTAT O2 Saturation 100% Above high normal 410027060905 94 - 97 HHCCT ISTAT Arterial PCO2 39.5mmHg Normal [id number] 32 - 45 HHCCT ISTAT Sample Type Normal 490338886895 HHCCT ISTAT Potassium 4.4mmol/L Normal 898883732346 3.4 - 5.3 H HCCT ISTAT Ionized Calcium 0.91mmol/L Below low normal 8021618708 06 1.17 - 1.33 HHCCT ISTAT Sodium 136mmol/L Normal 108980182365 136 - 145 HHCC T ISTAT Sodium 138mmol/L Normal 885874095228 136 - 145 HHCC T ISTAT Glucose 132mg/dL Above high normal 598062010214 65 - 99 HHCCT ISTAT Hematocrit 22% Below low normal 286175519260 35 - 47 HHCCT ISTAT Potassium 4.7mmol/L Normal 730291739833 3.4 - 5.3 H HCCT ISTAT Venous TCO2 26mmol/L Normal 545646941860 23 - 29 HHCCT ISTAT Venous pH 7.36 Normal 939930300979 7.33 - 7.43 HHCCT ISTAT Base Excess Normal 579044165184 HHCCT Venous O2 Saturation, POC 99% Above high normal 081645409701 60 - 75 HHCCT ISTAT Venous PO2 125mmHg Above high normal 766730706670 0 - 60 HHCCT ISTAT Sample Type Normal 382248730217 HHCCT ISTAT VENOUS PCO2 43.3mmHg Normal 723178078109 35 - 50 HHCCT ISTAT Venous HCO3 24.5mmol/L Normal 029605153468 23 - 28 HHCCT ISTAT Hemoglobin 7.5gm/dL Below low normal 942213181144 11. 7 - 15.7 HHCCT ISTAT Ionized Calcium 0.92mmol/L Below low normal 5439760074 06 1.17 - 1.33 HHCCT ISTAT Ionized Calcium 0.89mmol/L Below low normal 4014660304 05 1.17 - 1.33 HHCCT ISTAT Hematocrit 25% Below low normal 081094028917 35 - 47 HHCCT ISTAT Glucose 126mg/dL Above high normal 996934170949 65 - 99 HHCCT ISTAT Hemoglobin 8.5gm/dL Below low normal 092591336037 11. 7 - 15.7 HHCCT ISTAT Potassium 4mmol/L Normal 557817734544 3.4 - 5.3 H HCCT ISTAT Arterial Total CO2 23mmol/L Normal 154505032602 22 - 28 H[facility]CT ISTAT Arterial PO2 478mmHg Above high normal 504552832069 75 - 95 H[facility]CT ISTAT Arterial pH 7.36 Normal 395837802671 7.35 - 7. 45 HHCCT ISTAT Arterial HCO3 22.2mmol/L Normal 848069107116 22 - 2 6 HHCCT ISTAT Base Excess Normal 576688425730 HHCCT ISTAT O2 Saturation 100% Above high normal 460289981961 94 - 97 HHCCT ISTAT Arterial PCO2 39.3mmHg Normal 532839104235 32 - 45 HHCCT ISTAT Sample Type Normal 678300023569 HHCCT ISTAT Sodium 138mmol/L Normal 609853296883 136 - 145 HHCC T ISTAT Ionized Calcium 1.1mmol/L Below low normal 59501561605 5 1.17 - 1.33 HHCCT ISTAT Arterial Total CO2 27mmol/L Normal 054485101672 22 - 28 HHCCT ISTAT Arterial PO2 468mmHg Above high normal 828937163334 75 - 95 HHCCT ISTAT Arterial pH 7.35 Normal 445882081487 7.35 - 7. 45 [facility]CT ISTAT Arterial HCO3 25.5mmol/L Normal 536499178525 22 - 2 6 HHCCT ISTAT Base Excess 0mmol/L Normal 839844837035 HHCCT ISTAT O2 Saturation 100% Above high normal 666642845987 94 - 97 HHCCT ISTAT Arterial PCO2 45.9mmHg Above high normal 677789703113 32 - 45 HHCCT ISTAT Sample Type Normal 754934025382 HHCCT ISTAT Potassium 3.8mmol/L Normal 690400893791 3.4 - 5.3 H HCCT ISTAT Glucose 155mg/dL Above high normal 940207153978 65 - 99 HHCCT ISTAT Sodium 139mmol/L Normal 376808190990 136 - 145 HHCC T ISTAT Hematocrit 32% Below low normal 033607210515 35 - 47 HHCCT ISTAT Hemoglobin 10.9gm/dL Below low normal 565716645133 11. 7 - 15.7 HHCCT ISTAT Glucose 100mg/dL Above high normal 436849882180 65 - 99 HHCCT ISTAT Ionized Calcium 1.2mmol/L Normal 268627891780 1.17 - 1.33 HHCCT ISTAT Sodium 141mmol/L Normal [id number] 136 - 145 [facility] T ISTAT Hematocrit 34% Below low normal [id number] 35 - 47 [facility] ISTAT Potassium 4.1mmol/L Normal [id number] 3.4 - 5.3 [facility] ISTAT Arterial Total CO2 26mmol/L Normal [id number] 22 - 28 [facility] ISTAT Arterial PO2 96mmHg Above high normal [id number] 75 - 95 [facility] ISTAT Arterial pH 7.4 Normal [id number] 7.35 - 7. 45 [facility] ISTAT Arterial HCO3 25mmol/L Normal [id number] 22 - 26 [facility] Base Excess 0mmol/L Normal [id number] [facility] O2 Saturation 97% Normal [id number] 94 - 97 [facility] ISTAT Arterial PCO2 40.3mmHg Normal [id number] 32 - 45 [facility] Sample Type Normal [id number] [facility] ISTAT Hemoglobin 11.6gm/dL Below low normal [id number] 11. 7 - 15.7 [facility] Hct VFr Bld Auto 21.7% Below low normal [id number] 35 - 47 [facility] Platelet num Bld Auto 114Thou/uL Below low normal 1163833290 31 150 - 450 [facility] Immature Platelet Fraction 5.7% Normal [id number] 1.2 - 8.6 [facility] Anticoagulant Normal [id number] [facility] CT Fibrin Function,Heparinized 1.6minutes Normal [id number] 1 - 3 [facility] Angle 65.8degrees Normal [id number] 53 - 72 [facility] Angle, Heparinized 66.9degrees Normal [id number] 53 - 7 2 [facility] Max Amplitude 64.9mm Normal [id number] 50 - 70 [facility] [address] %Lysis 30 min,Heparinized 2.5% Normal [id number] 0 - 8 [facility] Fibrin Function 1.8minutes Normal [id number] 1 - 3 [facility] Reaction Time 5.2minutes Normal 5 - 10 [facility] %Lysis 30 min 1.2% Normal 405982591651 0 - [address] Reaction Time,Heparinized 5.3minutes Normal [id number] 5 - 10 [facility] Max Amplitude,Heparinized 65.8mm Normal [id number] 50 - 70 [facility] Anticoagulant Normal [id number] C CT POC Glucose 101mg/dL Above high normal [id number] 65 - 99 [facility] BUN SerPl-mCnc 19mg/dL Normal [id number] 8 - 21 [facility] CCT Creat SerPl-mCnc 0.8mg/dL Normal [id number] 0.4 - 1.1 [facility] GFR/BSA.pred SerPlBld [id number] 81 Normal [id number] 59 - [facility] Hct VFr Bld Auto 40.6% Normal [id number] 35 - 47 [facility] Hgb Bld-mCnc 13.5g/dL Normal [id number] 11.7 - 15.7 [facility] CCT POC Glucose 86mg/dL Normal [id number] 65 - 99 [facility] Delta Normal [id number] - 3 [facility] Troponin T SerPl-mCnc 6ng/L Normal [id number] - 15 [facility] Delta Normal [id number] - 3 [facility] Troponin T SerPl-mCnc 6ng/L Normal [id number] - 15 [facility] AST SerPl-cCnc 29U/L Normal [id number] 10 - 50 HH CCT ALT SerPl-cCnc 22U/L Normal [id number] 10 - 50 HH CCT Creat SerPl-mCnc 0.9mg/dL Normal [id number] 0.4 - 1.1 [facility] Globulin Ser Calc-mCnc 2.3g/dL Normal [id number] 1.5 - 3.9 [facility] CO2 SerPl-sCnc 25mmol/L Normal [id number] 22 - 33 HH CCT Albumin/Glob SerPl 1.9Ratio Normal [id number] 1 - 3 [facility] Anion Gap Bld-sCnc 10 Normal [id number] 7 - 17 [facility] Potassium SerPl-sCnc 4mmol/L Normal [id number] 3.4 - 5.3 [facility] Bilirub SerPl-mCnc 0.2mg/dL Normal [id number] 0.2 - 1 [facility] Calcium SerPl-mCnc 8.9mg/dL Normal [id number] 8.7 - 10 .5 [facility] BUN SerPl-mCnc 23mg/dL Above high normal [id number] 8 - 21 [facility] ALP SerPl-cCnc 59U/L Normal [id number] 32 - 122 HH CCT GFR/BSA.pred SerPlBld RHU-WOA-LwSXbr 71 Normal [id number] 59 - [facility] Chloride SerPl-sCnc 105mmol/L Normal [id number] 98 - 10 7 [facility] BUN/Creat SerPl 26Ratio Above high normal [id number] 10 - 25 [facility] Albumin SerPl-mCnc 4.4g/dL Normal [id number] 3.4 - 4. 8 [facility] Prot SerPl-mCnc 6.7g/dL Normal [id number] 6.3 - 8.3 H HCCT Glucose SerPl-mCnc 102mg/dL Above high normal [id number] 65 - 99 [facility] Sodium SerPl-sCnc 140mmol/L Normal [id number] 136 - 145 [facility] pro BNP, N-terminal 75pg/mL Normal [id number] - 125 [facility] Magnesium SerPl-mCnc 2.2mg/dL Normal [id number] 1.6 - 2.7 [facility] Neutrophils num Bld Auto 3.1Thou/uL Normal [id number] 2 - 7.5 [facility] Monocytes num Bld Auto 0.4Thou/uL Normal [id number] 0.2 - 1.5 [facility] Eosinophil num Bld Auto 0.1Thou/uL Normal [id number] 0 - 0.7 [facility] WBC num Bld Auto 5.1Thou/uL Normal [id number] 4 - 11 [facility]CT MCHC RBC Auto-mCnc 32.6g/dL Normal [id number] 30 - 36 [facility] Monocytes/leuk NFr Bld Auto 7.8% Normal [id number] [facility] Hct VFr Bld Auto 38.9% Normal [id number] 35 - 47 [facility] RBC num Bld Auto 4.31Mil/uL Normal [id number] 4 - 5.4 H[facility] RDW RBC Auto-Rto 12% Normal [id number] 11.5 - 14. 5 [facility] PMV Bld Auto 10.5fL Normal [id number] 7.5 - 12.5 [facility] Eosinophil/leuk NFr Bld Auto 1.9% Normal [id number] [facility] MCH RBC Qn Auto 29.5pg Normal [id number] 27 - 31 H [facility]CT Basophils/leuk NFr Bld Auto 0.4% Normal [id number] [facility] Basophils num Bld Auto 0.02Thou/uL Normal [id number] 0 - 0.2 [facility] Platelet num Bld Auto 177Thou/uL Normal [id number] 150 - 450 [facility] Neutrophils/leuk NFr Bld Auto 60.5% Normal [id number] [facility] MCV RBC Auto 90fL Normal [id number] 80 - 100 [facility] T Lymphocytes/leuk NFr Bld Auto 29% Normal [id number] [facility] Lymphocytes num Bld Auto 1.49Thou/uL Below low normal [id number] 1.5 - 4.5 CCT Imm Granulocytes/leuk NFr Bld Auto 0.4% Normal [id number] [facility] Hgb Bld-mCnc 12.7g/dL Normal [id number] 11.7 - 15.7 HH CCT Imm Granulocytes num Bld Auto 0.02Thou/uL Normal [id number] 0 - 0.1 [facility] History of Medication Use Medication Directions Dispensed Refills Start Date End Date [facility] apixaban (ELIQUIS) 5 MG tablet Take 1 tablet (5 mg total) by mouth 2 (two) times a day. 07/09/2024 active iohexol (OMNIPAQUE) 350 mg/mL injection 80 mL 80 mL, Intravenous, Once in imaging, contrast, Starting on Tue02/28/24 at 1514, For 1 dose, Radiology Appointment 02/28/2024 02/28/2024 completed metoPROLOL TARTRATE (LOPRESSOR) 25 MG tablet Take 1 tablet (25 mg total) by mouth every 12 (twelve) hours around the clock. 04/10/2024 06/14/2024 active aspirin enteric coated (ECOTRIN LOW STRENGTH) 81 MG EC tablet Take 1 tablet (81 mg total) by mouth daily. 04/10/2024 active oxyCODONE (ROXICODONE) 5 MG immediate release tablet Take 1 tablet (5 mg total) by mouth 4 times daily (every 6 hours) as needed for severe pain. Max Daily Amount: 20 mg 04/10/2024 active senna (SENOKOT) 8.6 MG Tab tablet Take 2 tablets by mouth nightly as needed for constipation. 04/10/2024 05/11/2024 active tamsulosin (FLOMAX) 0.4 MG capsule Take 1 capsule (0.4 mg total) by mouth daily. active Problems Problem Status Onset Date Problem Type Date of Resoluti on Source Aortic valve disorder active 2024-04-06 ProblemAct [facility] S/P AVR active EncounterDiagnosisAct [facility] Encounters Encounter Type Encounter Reason Primary Diagnosis Location Date Ambulatory Shortness of breath Shortness of breath [facility] 07/09/2024 Ambulatory Shortness of breath Shortness of breath [facility] 05/28/2024 Ambulatory Presence of prosthetic heart valve Presence of prosthetic heart valve [facility] 05/04/2024 Inpatient Presence of prosthetic heart valve Presence of prosthetic heart valve [facility] 04/06/2024 Ambulatory [place] [facility] 03/22/2024 Ambulatory Nonrheumatic aortic (valve) stenosis Nonrheumatic aortic (valve) stenosis [facility] 03/16/2024 Ambulatory Nonrheumatic aortic (valve) stenosis Nonrheumatic aortic (valve) stenosis [facility] 03/07/2024 Ambulatory Nonrheumatic aortic (valve) stenosis Nonrheumatic aortic (valve) stenosis [facility] 02/28/2024 Ambulatory Nonrheumatic aortic (valve) stenosis Nonrheumatic aortic (valve) stenosis [facility] 02/28/2024 Ambulatory Nonrheumatic aortic (valve) stenosis Nonrheumatic aortic (valve) stenosis [facility] 02/10/2024 Ambulatory [place] [facility] 02/06/2024 Ambulatory [facility] 01/23/2024 Ambulatory Nonrheumatic aortic (valve) stenosis Nonrheumatic aortic (valve) stenosis [facility] 01/09/2024 Emergency Chest pain, unspecified Chest pain, unspecified [facility] 12/19/2023 Care Team Organization Name Specialty Phone Email Start Date End Da te [facility] 02/04/2024 [facility] 12/20/2023 [facility] 12/20/2023 08/29/2024 [facility] 12/20/2023
--- OUTSIDE RECORDS SUMMARY | 2024-09-11 17:36 | XMS_ITS | Encounter Summary ---
Author Organization [facility] Address [address] [place] [address] Care Team Providers Care Surgical Endoscopist Name Role Phone Joseph Jorge Lubin MD Unavailable [phone] Billy Dorsey MD Primary Care Provider [phone] Angelina Saldana MD Unavailable [phone] Encounter Details Date Type Department Care Team (Late st Contact Info) Description 03/01/2024 Scanned Document [facility] Heart & Vascular [place] at [facility] - Echocardiography Laboratory [address] [place] [address] Cardiology, Scan Social History Tobacco Use Types Packs/Day Years Used Date Smoking Tobacco: Never Smokeless Tobacco: Never Alcohol Use Standard Drinks/Week Comments Yes 7 (1 standard drink = 0.6 oz pur e alcohol) RARELLY AUDIT-C Answer Date Recorded Q1: How often do you have a drink containing alc ohol? 2-4 times a month 02/10/2024 Q2: How many drinks containi ng alcohol do you have on a typical day when you are drinking? 1 or 2 02/10/2024 Q3: How often do you have si x or more drinks on one occasion? Never 02/10/2024 Sex and Gender Information Value Date Recorded Sex Assigned at Female 12/19/2023 8:48 PM EDT Gender Identity Female 12/19/2023 8:48 PM EDT Sexual Orientation Heterosexual (straight) 12/18 8:48 PM EDT documented as of this encounter Plan of Treatment Upcoming Encounters Date Type Department Care Team (Late st Contact Info) Description 01/14/2025 9:40 AM EDT Office Visit [facility] Heart & Vascular [facility] 7 [facility] [address] [place] [address] Jorge Ruiz MD 7 [facility] [address] [place] [address] documented as of this encounter Visit Diagnoses Not on filedocumented in this encounter Care Teams Surgical Endoscopist Relationship Specialty Start Date End Date Billy Dorsey MD [address] [place] [address] [address] [place] [address] PCP - General Family Medicine 02/03/24 Jorge Ruiz MD [address] [place] [address] Primary Transplant Registered Nurse Cardiovascular Disease 01/09/24 Angelina Saldana MD 85 [facility] [address] [place] [address] Consulting Provider Surgery, Cardiac 05/01/24 documented as of this encounter
--- OUTSIDE RECORDS SUMMARY | 2024-09-11 17:36 | XMS_ITS | Clinical Summary ---
Author Organization [facility] Address [address] [place] [address] Care Team Providers Care Tipple Engineer Name Role Phone Joseph Jorge Lubin MD Unavailable [phone] Billy Dorsey MD Primary Care Provider [phone] Angelina Saldana MD Unavailable [phone] Allergies No known active allergies Medications Medication Sig Dispensed Refills Start Date End Date Status traZODone (DESYREL) 100 MG tablet TAKE ONE TABLET BY MOUTH EVERY EVENING AT BEDTIME Active aspirin enteric coated (ECOTRIN LOW STRENGTH) 81 MG EC tabletIndications:S/ P AVR Take 1 tablet (81 mg total) by mouth daily. 04/10/2024 Active apixaban (ELIQUIS) 5 MG tabletIndications:S/ P AVR Take 1 tablet (5 mg total) by mouth 2 (two) times a day. 180 tablet 3 07/09/2024 Active apixaban (ELIQUIS) 5 MG tabletIndications:S/ P AVR Take 1 tablet (5 mg total) by mouth 2 (two) times a day. 56 tablet 07/09/2024 Active Active Problems Problem Noted Date Diagnosed Date Aortic valve disorder 04/06/2024 Encounters Date Type Department Care Team Description 07/12/2024 Abstract [facility] Cardiothoracic Surgery [address] [place] [address] Sophia Fuentes RN 07/09/2024 9:40 AM EST Office Visit [facility] Heart & Vascular [facility] [address] [place] [address] Jorge Ruiz MD Shortness of breath (Primary Dx); Heart murmur; Chest pain, unspecified type; S/P AVR 07/09/2024 Travel 06/14/2024 Telephone [facility] & Vascular [address] [address] Jorge Ruiz MD Other from Last 3 Months Social History Tobacco Use Types Packs/Day Years Used Date Smoking Tobacco: Never Smokeless Tobacco: Never Tobacco Cessation:Counseling Given: Not Answered Alcohol Use Standard Drinks/Week Comments Yes 7 (1 standard drink = 0.6 oz pure alcohol) 1 glass of wine with dinner, occ beer on weekends [facility] [employer] Answer Date Recorded In the past 12 months has [email or web address] oil, or water [employer] threatened to shut off services in your [...] place to sleep or slept in a alf (including now)? No 04/07/2024 Sex and Gender Information Value Date Recorded Sex Assigned at Female 12/19/2023 8:48 PM EDT Gender Identity Female 12/19/2023 8:48 PM EDT Sexual Orientation Heterosexual (straight) 12/18 8:48 PM EDT Last Filed Vital Signs Vital Sign Reading Time Taken Comments Blood Pressure 105/70 07/09/2024 9:28 AM EST Pulse 58 07/09/2024 9:28 AM EST Temperature 36.4 ??C (97.6 ??F) 05/04/2024 10:[address] Respiratory Rate 18 04/10/2024 12:00 PM EDT Oxygen Saturation 98% 07/09/2024 9:28 AM EST Inhaled Oxygen Concentration - - Weight 61.4 kg (135 lb 6.4 oz) 07/09/2024 9:28 A M EST Height 170.2 cm (5' 7 ) 07/09/2024 9:28 AM EST Body Mass Index 21.21 07/09/2024 9:28 AM EST Plan of Treatment Upcoming Encounters Date Type Department Care Team (Late st Contact Info) Description 01/14/2025 9:40 AM EDT Office Visit [facility] Heart & Vascular [place] [address] [address] Jorge Ruiz MD [address] [id number] Health Maintenance Due Date Last Done Comments Hepatitis C Virus Screening 1957 DTaP/Tdap/Td Vaccines (1 - Tdap) 1976 Pneumococcal Vaccines 50+ (1 of 2 - PCV) 1976 Mammogram 1997 Colonoscopy 2002 Zoster (Shingles) Vaccine (1 of 2) 12/06/2007 DXA Bone Density (Females,Ag es 65 and older) 2022 Influenza Vaccine 01/12/2024 03/03/2020 COVID-19 Vaccine ( - 2023-2 5 season) 2024 RSV Vaccine 60 years and old er and Patients (1 - 1-dose 75+ series) 2032 Hepatitis B Vaccines Aged Out No long er eligible based on patient's age to complete this topic Medical Devices Implanted Type Area Mri Supervisor Device Identifier Shelf Expiration Date Model / Serial / Lot [id number] Graft Cv Vascutek 8mm 15cm Thrx Abd Wvn Glwv Straight - [id number] Implanted:Qty : 1 on 04/06/2024 by Angelina Saldana MD at [facility] Graft Right: Axilla [employer] - DIV TERUMO [id number] 09/10/2026 [id number] / [id number] 1 / [id number] Graft Vasc Glwv Vascutek 30mm 30cm Thor Abdominal Twl Wvn - [id number] Implanted:Qty : 1 on 04/06/2024 by Angelina Saldana MD at [facility] Graft N/A: Aorta [employer] [id number] 12/10/2026 [id number] / [id number] 0 / [id number] Valve Aortic Inspiris Resilia 25mm Bvn Pericard Lubna Rbr Lflt - [id number] Implanted:Qty : 1 on 04/06/2024 by Angelina Saldana MD at [facility] Valve N/A: Heart [employer]EE[employer] LYLE [id number] 08/31/2027 [id number] / [id number] / Procedures Procedure Name Priority Date/Time Associated Diagnosis Comments ECG 12-LEAD Routine 07/09/2024 9:34 AM EST Shortness of breath Heart murmur Chest pain, unspecified type from Last 3 Months Results * ECG 12 lead (07/09/2024 9:34 AM EST) Ventricular rate 58 BPM EKG [facility] Atrial rate 58 BPM EKG [facility] P-R interval 144 ms EKG [facility] QRS duration 82 ms EKG [facility] Q-T interval 418 ms EKG [facility] QTC calculation (Bazett) 410 ms EKG [facility] P axis 26 degrees EKG [facility] R axis 91 degrees EKG [facility] T axis 51 degrees EKG [facility] 07/09/2024 9:34 AM EST Narrative EKG [facility] - 07/09/2024 9:54 AM EST Sinus bradycardia Rightward axis Borderline ECG When compared with ECG of 09-Apr-2024 17:01, Vent. rate has decreased by ??32 bpm Questionable change in QRS axis T wave inversion no longer evident in Inferior leads Confirmed by MD Ruiz Usama ([id number]) on 07/09/2024 9:54:58 AM Procedure Note Jorge Ruiz MD - 07/09/2024 Sinus bradycardia Rightward axis Borderline ECG When compared with ECG of 09-Apr-2024 17:01, Vent. 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 [facility] Care Gas Turbine Powerplant Mechanic Care Teams Tipple Engineer Relationship Specialty Start Date End Date Billy Dorsey MD [address] [place] [address], [place] [address] PCP - General Family Medicine 02/03/24 Jorge Ruiz MD [address] [place] [address] Primary Wet End Supervisor Cardiovascular Disease 01/09/24 Angelina Saldana MD [address] [place] [address] [place] [address] Consulting Provider Surgery, Cardiac 05/01/24
--- OUTSIDE RECORDS SUMMARY | 2024-09-11 17:36 | XMS_ITS | Encounter Summary ---
Author Organization [facility] Address [address] [place] [address] Care Team Providers Care Mat Puncher Name Role Phone Jorge Ruiz MD Unavailable [phone] Billy Dorsey MD Primary Care Provider [phone] Angelina Saldana MD Unavailable [phone] Reason for Visit * Reason Comments Other Encounter Details Date Type Department Care Team (Late st Contact Info) Description 06/04/2024 Telephone [facility] Heart & Vascular [place] [address] [address] Jorge Ruiz MD [address] [place] [address] Other Social History Tobacco Use Types Packs/Day Years Used Date Smoking Tobacco: Never Smokeless Tobacco: Never Alcohol Use Standard Drinks/Week Comments Yes 7 (1 standard drink = 0.6 oz pure alcohol) 1 glass of wine with dinner, occ beer on weekends [facility] Utilities Answer Date Recorded In the past 12 months has [employer], gas, oil, or water [employer] threatened to shut off services in your [...] place to sleep or slept in a fpc (including now)? No 04/07/2024 Sex and Gender Information Value Date Recorded Sex Assigned at Female 12/19/2023 8:48 PM EDT Gender Identity Female 12/19/2023 8:48 PM EDT Sexual Orientation Heterosexual (straight) 12/18 8:48 PM EDT documented as of this encounter Miscellaneous Notes * Telephone Encounter - Leydi Zavaleta - 06/08/2024 3:03 PM EST When Francisca spoke to medical operations supervisor it was mentioned that she will need a refill of eliquis. Please send this to [facility] MA * Telephone Encounter - Melania Krishna MA - 06/04/2024 9:24 AM EST Spoke with pt msg given she will nd refills on Eliquis * Telephone Encounter - Melania Krishna MA - 06/04/2024 9:10 AM EST Please advise * Telephone Encounter - Mary Resendiz - 06/04/2024 9:02 AM EST Pt had valve replacement and an aortic aneurism she was put on eliquis temporary she ran out and she is not sure if she should continue on the medication. Pt was in afib during surgery she had an ultrasound a week ago and she is no longer on afib documented in this encounter Plan of Treatment Upcoming Encounters Date Type Department Care Team (Late st Contact Info) Description 01/14/2025 9:40 AM EDT Office Visit [facility] Heart & Vascular [place] [address] [phone] Jorge Ruiz MD [address] [address] documented as of this encounter Visit Diagnoses Not on filedocumented in this encounter Care Teams Mat Puncher Relationship Specialty Start Date End Date Billy Dorsey MD [address] [place] [address] Dr [address] [place]UPE [place] [address] PCP - General Family Medicine 02/03/24 Jorge Ruiz MD [address] [place] [address] Primary Feed In Worker Cardiovascular Disease 7/29/24 Angelina Saldana MD [address] [address] Consulting Provider Surgery, Cardiac 05/01/24 documented as of this encounter
== END 2024-09-11 15:15 | disposition home or self-care (01) ==
LOC: HO.HMCFM 14:45
PROVIDERS: PCP Internal Medicine; Visit Provider Internal Medicine
DX: I35.0 Nonrheumatic aortic (valve) stenosis (principal); G47.00 Insomnia, unspecified

== ENCOUNTER → 2024-09-11 14:44 | Outpatient (BNVA) | payer MEDICARE, SELFPAY | PROVIDERS: PCP Internal Medicine; Visit Provider Internal Medicine | DX: I27.20 Pulmonary hypertension, unspecified (principal); I35.0 Nonrheumatic aortic (valve) stenosis; E78.5 Hyperlipidemia, unspecified; G47.00 Insomnia, unspecified | CPT/HCPCS: 96127 ==

== ENCOUNTER 2024-09-11 15:36 | Outpatient (REF) | payer OTHER, SELFPAY ==
--- OUTSIDE RECORDS SUMMARY | 2024-09-11 18:28 | XMS_ITS | Encounter Summary ---
Author Organization [facility] Address [address] [place] [address] Care Team Providers Care Bilingual Elementary School Teacher Name Role Phone Joseph Jorge Lubin MD Unavailable [phone] Billy Dorsey MD Primary Care Provider [phone] Angelina Saldana MD Unavailable [phone] Encounter Details Date Type Department Care Team (Late st Contact Info) Description 07/12/2024 Abstract [facility] Cardiothoracic Surgery [address] [address] Sophia Fuentes, [place] [address] [address] Social History Tobacco Use Types Packs/Day Years Used Date Smoking Tobacco: Never Smokeless Tobacco: Never Alcohol Use Standard Drinks/Week Comments Yes 7 (1 standard drink = 0.6 oz pure alcohol) 1 glass of wine with dinner, occ beer on weekends [facility] Utilities Answer Date Recorded In the past 12 months has [employer], gas, oil, or water [employer] threatened to shut off services in your [...] place to sleep or slept in a detention (including now)? No 04/07/2024 Sex and Gender Information Value Date Recorded Sex Assigned at Female 12/19/2023 8:48 PM EDT Gender Identity Female 12/19/2023 8:48 PM EDT Sexual Orientation Heterosexual (straight) 12/18 8:48 PM EDT documented as of this encounter Plan of Treatment Upcoming Encounters Date Type Department Care Team (Late st Contact Info) Description 01/14/2025 9:40 AM EDT Office Visit [facility] Heart & Vascular [place] [address] [phone] Jorge Ruiz MD [address] [address] documented as of this encounter Visit Diagnoses Not on filedocumented in this encounter Care Teams Bilingual [employer] Teacher Relationship Specialty Start Date End Date Billy Dorsey MD [address] [place] [address] [place] [address] PCP - General Family Medicine 02/03/24 Jorge Ruiz MD [address] [place] [address] Servicer Supervisor Cardiovascular Disease 01/09/24 Angelina Saldana MD [address] [place] [address] Consulting Provider Surgery, Cardiac 05/01/24 documented as of this encounter
--- OUTSIDE RECORDS SUMMARY | 2024-09-11 18:28 | XMS_ITS | Encounter Summary ---
Author Organization [facility] Address [address] [place] [address] Care Team Providers Care Air Press Operator Name Role Phone Joseph Jorge Lubin MD Unavailable [phone] Billy Dorsey MD Primary Care Provider [phone] Angelina Saldana MD Unavailable [phone] Encounter Details Date Type Department Care Team (Late st Contact Info) Description 03/01/2024 Scanned Document [facility] Heart & Vascular [place] at [facility] - Echocardiography Laboratory [address] [place] [address] Cardiology, Scan Social History Tobacco [...] 9:40 AM EDT Office Visit [facility] Heart & Vascular [facility] 7 [facility] [address] [place] [address] Jorge Ruiz MD 7 [facility] [address] [place] [address] documented as of this encounter Visit Diagnoses Not on filedocumented in this encounter Care Teams Air Press Operator Relationship Specialty Start Date End Date Billy Dorsey MD [address] [place] [address] [address] [place] [address] PCP - General Family Medicine 02/03/24 Jorge Ruiz MD [address] [place] [address] Primary Director It Project Cardiovascular Disease 01/09/24 Angelina Saldana MD 85 [facility] [address] [place] [address] Consulting Provider Surgery, Cardiac 05/01/24 documented as of this encounter
--- OUTSIDE RECORDS SUMMARY | 2024-09-11 18:28 | XMS_ITS | Clinical Summary ---
Author Organization [facility] Address [address] [place] [address] Care Team Providers Care Sugarcane Planter Name Role Phone Joseph Jorge Lubin MD Unavailable [phone] Billy Dorsey MD Primary Care Provider [phone] Angelina Saldana MD Unavailable [phone] Allergies No known active allergies Medications Medication [...] Type Department Care Team Description 07/12/2024 Abstract [facility] Cardiothoracic Surgery [address] [place] [address] Sophia Fuentes RN 07/09/2024 9:40 AM EST Office Visit [facility] Heart & Vascular [facility] [address] [place] [address] Jorge Ruiz MD Shortness of breath (Primary Dx); Heart murmur; Chest pain, unspecified type; S/P AVR 07/09/2024 Travel 06/14/2024 Telephone [facility] & Vascular [address] [address] Jorge Ruiz MD Other from Last 3 Months Social History Tobacco Use Types Packs/Day Years Used Date Smoking Tobacco: Never Smokeless Tobacco: Never Tobacco Cessation:Counseling Given: Not Answered Alcohol Use Standard Drinks/Week Comments Yes 7 (1 standard drink = 0.6 oz pure alcohol) 1 glass of wine with dinner, occ beer on weekends [facility] [employer]un[employer] Answer Date Recorded In the past 12 months has [employer], oil, or water [employer] threatened to shut off services in your [...] Visit [facility] Heart & Vascular [place] [address] [address] Jorge Ruiz MD [address] [id number] Health Maintenance Due Date Last Done Comments [...] this topic Medical Devices Implanted Type Area Plant Operations Vice President Device Identifier Shelf Expiration Date Model / Serial / Lot [id number] Graft Cv Vascutek 8mm 15cm Thrx Abd Wvn Glwv Straight - [id number] Implanted:Qty : 1 on 04/06/2024 by Angelina Saldana MD at [facility] Graft Right: Axilla [employer] - DIV TERUMO [id number] 09/10/2026 [id number] / [id number] / [id number] Graft Vasc Glwv Vascutek 30mm 30cm Thor Abdominal Twl Wvn - [id number] Implanted:Qty : 1 on 04/06/2024 by Angelina Saldana MD at [facility] Graft N/A: Aorta [employer] [id number] 12/10/2026 [id number] / [id number] / [id number] Valve Aortic Inspiris Resilia 25mm Bvn Pericard Lubna Rbr Lflt - [id number] Implanted:Qty : 1 on 04/06/2024 by Angelina Saldana MD at [facility] Valve N/A: Heart [employer] LYLE [id number] 08/31/2027 [id number] / [id number] / Procedures Procedure Name Priority Date/Time Associated Diagnosis Comments ECG 12-LEAD Routine 07/09/2024 9:34 AM EST Shortness of breath Heart murmur Chest pain, unspecified type from Last 3 Months Results * ECG 12 lead (07/09/2024 9:34 AM EST) Ventricular rate 58 BPM EKG [facility] Atrial rate 58 BPM EKG [facility] P-R interval 144 ms EKG [facility] QRS duration 82 ms EKG [facility] Q-T interval 418 ms EKG [facility] QTC calculation (Bazett) 410 ms EKG [facility] P axis 26 degrees EKG [facility] R axis 91 degrees EKG [facility] T axis 51 degrees EKG [facility] 07/09/2024 9:34 AM EST Narrative EKG [facility] - 07/09/2024 9:54 AM EST Sinus bradycardia Rightward axis Borderline ECG When compared with ECG of 09-Apr-2024 17:01, Vent. rate has decreased by ??32 bpm Questionable change in QRS axis T wave inversion no longer evident in Inferior leads Confirmed by MD Ruiz Usama ([id number]) on 07/09/2024 9:54:58 AM Procedure Note Jorge Ruiz MD - 07/09/2024 Sinus bradycardia Rightward axis Borderline ECG When compared with ECG of 09-Apr-2024 17:01, Vent. rate has decreased by 32 bpm Questionable change in QRS axis T wave inversion no longer evident in Inferior leads Confirmed by MD Ruiz Usama ([id number]) on 07/09/2024 9:54:58 AM Jorge Dorantes MD ECG ORDERABLES [facility]NEW [facility] from Last 3 Months Advance Directives Documents on File Type Date Recorded Patient Bottle Washer Expl anation Advance Directive-Scan 03/23/2024 2:18 PM LIVING WILL OR HEALT H CARE INSTRRUCTIONS * Full Code (Latest Code Status on File) Date Activated Date Inactivated Comments 04/06/2024 2:16 PM * Full Code Date Activated Date Inactivated Comments 02/10/2024 6:25 AM 04/06/2024 5:25 AM Healthcare Agents on File Name Relationship Healthcare Agent Relationship Communication Silvina Jimenez Healthcare strategic partnership representative 1. [facility] Care Bottle Washer Care Teams Sugarcane Planter Relationship Specialty Start Date End Date Billy Dorsey MD [address] [place] [address], [place] [address] PCP - General Family Medicine 02/03/24 Jorge Ruiz MD [address] [place] [address] Primary Service Attendant Cardiovascular Disease 01/09/24 Angelina Saldana MD [address] [place] [address] [place] [address] Consulting Provider Surgery, Cardiac 05/01/24
--- OUTSIDE RECORDS SUMMARY | 2024-09-11 18:28 | XMS_ITS | Encounter Summary ---
Author Organization [facility] Address [address] [place] [address] Care Team Providers Care General Assembler Name Role Phone Jorge Ruiz MD Unavailable [phone] Billy Dorsey MD Primary Care Provider [phone] Angelina Saldana MD Unavailable [phone] Reason for Visit * Reason Comments Other Encounter Details Date Type Department Care Team (Late st Contact Info) Description 06/04/2024 Telephone [facility] Heart & Vascular [place] [address] [address] Jorge Ruiz MD [address] [place] [address] Other Social History Tobacco Use Types Packs/Day Years Used Date Smoking Tobacco: Never Smokeless Tobacco: Never Alcohol Use Standard Drinks/Week Comments Yes 7 (1 standard drink = 0.6 oz pure alcohol) 1 glass of wine with dinner, occ beer on weekends [facility] Utilities Answer Date Recorded In the past 12 months has [employer], gas, oil, or water [employer] threatened to shut off services in your [...] place to sleep or slept in a mcc (including now)? No 04/07/2024 Sex and Gender Information Value Date Recorded Sex Assigned at Female 12/19/2023 8:48 PM EDT Gender Identity Female 12/19/2023 8:48 PM EDT Sexual Orientation Heterosexual (straight) 12/18 8:48 PM EDT documented as of this encounter Miscellaneous Notes * Telephone Encounter - Leydi Zavaleta - 06/08/2024 3:03 PM EST When Francisca spoke to medical stenographer it was mentioned that she will need [...] Description 01/14/2025 9:40 AM EDT Office Visit [facility] Heart & Vascular [place] [address] [phone] Jorge Ruiz MD [address] [address] documented as of this encounter Visit Diagnoses Not on filedocumented in this encounter Care Teams General Assembler Relationship Specialty Start Date End Date Billy Dorsey MD [address] [place] [address] Dr Vang [address] MARIA GUADALUPE Cervantes [address] PCP - General Family Medicine 02/03/24 Jorge uRiz MD [address] [place] [address] Primary Gas Specialist Cardiovascular Disease 7/29/24 Angelina Saldana MD [address] [address] Consulting Provider Surgery, Cardiac 05/01/24 documented as of this encounter
[2024-09-11 18:59] LABS: Baso%MD 0.5 %; Eos%MD 3.5 %; Hematocrit 38.3 % (37.0-47.0); Hemoglobin 12.7 g/dl (12.0-16.0); IG%MD 0.2 %; Mean Corpuscular HGB Conc 33.2 g/dl (31.0-35.0); Mean Corpuscular Hemoglobin 28.4 pg (27.0-33.0); Mean Corpuscular Volume 85.7 fL (80.0-98.0); Mean Platelet Volume 11.4 fL (9.4-12.3); Mono%MD 8.8 %; Platelet Count 194 X10*3/uL (160-400); Red Blood Count 4.47 X10*6/uL (4.20-5.50); White Blood Count 5.5 X10*3/uL (4.8-10.8)
[2024-09-11 19:54] LABS: Alanine Aminotransferase 18 U/L (0-31); Albumin Level 4.2 g/dL (3.5-5.0); Alkaline Phosphatase 89 U/L (39-117); Anion Gap 9 (12-20); Aspartate Amino Transferase 24 U/L (5-31); Bilirubin Total 0.4 mg/dL (0.0-1.0); Blood Urea Nitrogen 25 mg/dL (9-16); Carbon Dioxide 28 mmol/L (22-29); Chloride 109 mmol/L (96-108); Cholesterol 180 mg/dL (<200); Estimated Glomerular Filt Rate > 60; Glucose Random 97 mg/dL (60-115); HDL Cholesterol 56 mg/dL (>40); LDL Cholesterol Calculated 93 mg/dL (<100); Potassium 4.1 mmol/L (3.3-5.1); Sodium 142 mmol/L (135-145); Total Protein 6.6 g/dL (6.5-8.0); Triglycerides 159 mg/dL (<150)
[2024-09-11 20:07] LABS: TSH reflex Free T4 1.12 uIU/mL (0.32-4.0)
[2024-09-11 20:51] LABS: Eosinophils Absolute Manual 0.1 X10*3/uL (0.0-0.4); Eosinophils Percent Manual 2 % (0-4); Lymphocytes Absolute Manual 1.5 X10*3/uL (1.2-4.9); Lymphocytes Percent Manual 27 % (20-40); Monocytes Absolute Manual 0.2 X10*3/uL (0.1-1.2); Monocytes Percent Manual 4 % (2-11); Neutrophils Percent Manual 67 % (45-73)
[2024-09-11 20:52] LABS: Platelet Estimate NORMAL (NORMAL); Platelet Morphology Comment NORMAL; RBC Morphology NORMAL
[2024-09-11 20:53] LABS: Band Neutrophils Percent 0 % (3-5); Neutrophils Absolute Manual 3.7 X10*3/uL (2.0-8.3)
== END 2024-09-11 15:37 | disposition home or self-care (01) ==
LOC: HO.WFDLDS 15:36
PROVIDERS: Visit Provider Internal Medicine
DX: I35.0 Nonrheumatic aortic (valve) stenosis (principal); G47.00 Insomnia, unspecified; Z13.228 Encounter for screening for other metabolic disorders; Z13.220 Encounter for screening for lipoid disorders
CPT/HCPCS: 36415; 80053; 80061; 84443; 85007; 85027

== ENCOUNTER 2025-04-23 12:07 | Outpatient (REF) | payer MEDICARE, SELFPAY ==
--- OUTSIDE RECORDS SUMMARY | 2025-04-23 14:01 | XMS_ITS | Encounter Summary ---
Author Organization [facility] Address [address] [place] [address] Care Team Providers Care Corn Detasseler Machine Operator Name Role Phone Joseph Jorge Lubin MD Unavailable [phone] Billy Dorsey MD Primary Care Provider [phone] Angelina Saldana MD Unavailable [phone] Encounter Details Date Type Department Care Team (Late st Contact Info) Description 03/01/2024 Scanned Document [facility] Heart & Vascular [place] at [facility] - Echocardiography Laboratory [address] [place] [address] Cardiology, Scan Social History Tobacco [...] more drinks on one occasion? Never 02/10/2024 Comments Unknown Sex and Gender Information Value Date Recorded Sex Assigned at Female 12/19/2023 8:48 PM EDT Legal Sex Female 8:18 PM EDT Gender Identity Female 12/19/2023 8:48 PM EDT Sexual Orientation Heterosexual (straight) 12/18 8:48 PM EDT documented as of this encounter Plan of Treatment Not on file documented as of this encounter Visit Diagnoses Not on filedocumented in this encounter Care Teams Corn Detasseler Machine Operator Relationship Specialty Start Date End Date Billy Dorsey MD [address] [place] [address] [address] [place] [address] PCP - General Family Medicine 02/03/24 Jorge Ruiz MD [address] [place] [address] Primary Armored Machine Operator Cardiovascular Disease 01/09/24 Angelina Saldana MD 85 [facility] [address] [place] [address] Consulting Provider Surgery, Cardiac 05/01/24 documented as of this encounter
--- OUTSIDE RECORDS SUMMARY | 2025-04-23 14:01 | XMS_ITS | Encounter Summary ---
Author Organization [facility] Address [address] [place] [address] Care Team Providers Care Director [employer] Name Role Phone Joseph Jorge Lubin MD Unavailable [phone] Billy Dorsey MD Primary Care Provider [phone] Angelina Saldana MD Unavailable [phone] Encounter Details Date Type Department Care Team (Late st Contact Info) Description 07/12/2024 Abstract [facility] Cardiothoracic Surgery [address] [address] Sophia Fuentes, [place] [address] [address] Social History Tobacco Use Types Packs/Day Years Used Date Smoking Tobacco: Never Smokeless Tobacco: Never Alcohol Use Standard Drinks/Week Comments Yes 7 (1 standard drink = 0.6 oz pure alcohol) 1 glass of wine with dinner, occ beer on weekends [facility] Utilities Answer Date Recorded In the past 12 months has [employer], gas, oil, or water [employer] threatened to shut off services in your [...] place to sleep or slept in a usp (including now)? No 04/07/2024 Comments Unknown Sex and Gender Information Value [...] on filedocumented in this encounter Care Teams Director [employer] Relationship Specialty Start Date End Date Billy Dorsey MD [address] [place] [address] [place] [address] PCP - General Family Medicine 02/03/24 Jorge Ruiz MD [address] [place] [address] Primary Flight Operations Dispatch Clerk Cardiovascular Disease 01/09/24 Angelina Saldana MD [address] [place] [address] Consulting Provider Surgery, Cardiac 05/01/24 documented as of this encounter
--- OUTSIDE RECORDS SUMMARY | 2025-04-23 14:01 | XMS_ITS | Clinical Summary ---
Author Organization [facility] Address [address] [place] [address] Care Team Providers Care Human Insights Lead Ads Marketing Name Role Phone Joseph Jorge Lubin MD Unavailable [phone] Billy Dorsey MD Primary Care Provider [phone] Angelina Saldana MD Unavailable [phone] Allergies No known active allergies Medications traZODone (DESYREL) 100 MG tablet TAKE ONE TABLET BY MOUTH EVERY EVENING AT BEDTIME Active aspirin enteric coated (ECOTRIN LOW STRENGTH) 81 MG EC tabletIndication s:S/P AVR Take 1 tablet (81 mg total) by mouth daily. 04/10/2024 Active apixaban (ELIQUIS) 2.5 MG tabletIndication s:S/P AVR Take 1 tablet (2.5 mg total) by mouth 2 (two) times a day. 180 tablet 3 01/18/2025 Active apixaban (ELIQUIS) 2.5 MG tabletIndication s:Atrial fibrillation, unspecified type (HCC) Take 1 tablet (2.5 mg total) by mouth 2 (two) times a day. 56 tablet 01/18/2025 Active Active Problems Problem Noted Date Diagnosed Date Atrial fibrillation 01/18/2025 Aortic valve disorder 04/06/2024 Social History Tobacco Use Types Packs/Day Years Used Date Smoking Tobacco: Never Smokeless Tobacco: Never Tobacco Cessation:Counseling Given: Not Answered Alcohol Use Standard Drinks/Week Comments Yes 7 (1 standard drink = 0.6 oz pure alcohol) 1 glass of wine with dinner, occ beer on weekends [facility] Utilities Answer Date Recorded In the past 12 months has th e [employer], gas, oil, or water company threatened to shut off services in your [...] place to sleep or slept in a snf (including now)? No 04/07/2024 Comments Unknown Sex and Gender Information Value Date Recorded Sex Assigned at Female 12/19/2023 8:48 PM EDT Legal Sex Female 8:18 PM EDT Gender Identity Female 12/19/2023 8:48 PM EDT Sexual Orientation Heterosexual (straight) 12/18 8:48 PM EDT Last Filed Vital Signs Vital Sign Reading Time Taken Comments Blood Pressure 110/35 01/18/2025 12:00 PM EDT Pulse 72 01/18/2025 12:00 PM EDT Temperature 36.4 C (97.6 F) 05/04/2024 10:26 AM EST Respiratory Rate 18 04/10/2024 12:00 PM EDT Oxygen Saturation 98% 01/18/2025 12:00 PM EDT Inhaled Oxygen Concentration - - Weight 59.9 kg (132 lb) 01/18/2025 12:00 PM EDT Height 171.5 cm (5' 7.5 ) 01/18/2025 12:00 PM ED T Body Mass Index 20.37 01/18/2025 12:00 PM EDT Plan of Treatment Health Maintenance Due Date Last Done Comments Hepatitis C Virus Screening 1955 DTaP/Tdap/Td Vaccines (1 - Tdap) 1976 Pneumococcal Vaccines 50+ (1 of 2 - PCV) 1976 Mammogram 1997 Colonoscopy 2002 RSV Vaccine 50 years and old er and Patients (1 - Risk 50-74 years 1-dose series) 12/06/2007 Zoster (Shingles) Vaccine (1 of 2) 12/06/2007 DXA Bone Density (Females,Ag es 65 and older) 2022 Influenza Vaccine 01/11/2025 03/03/2020 COVID-19 Vaccine ( - 2023-2 5 season) 2025 Advance Care Planning Completed 03/23/2024 Hepatitis B Vaccines Aged Out No long er eligible based on patient's age to complete this topic Medical Devices Implanted Type Area Varnish Dipper Device Identifier Shelf Expiration Date Model / Serial / Lot [id number] Graft Cv Vascutek 8mm 15cm Thrx Abd Wvn Glwv Straight - [id number] Implanted:Qty : 1 on 04/06/2024 by Angelina Saldana MD at [facility] Graft Right: Axilla [employer] - DIV TERUMO [id number] 09/10/2026 [id number] / [id number] 1 / [id number] Graft Vasc Glwv Vascutek 30mm 30cm Thor Abdominal Twl Wvn - [id number] Implanted:Qty : 1 on 04/06/2024 by Angelina Saldana MD at [facility] Graft N/A: Aorta [employer] - DIV TERU [id number] 12/10/2026 [id number] / [id number] 0 / [id number] Valve Aortic Inspiris Resilia 25mm Bvn Pericard Lubna Rbr Lflt - [id number] Implanted:Qty : 1 on 04/06/2024 by Angelina Saldana MD at [facility] Valve N/A: Heart [employer] LYLE [id number] 08/31/2027 [id number] / [id number] / Insurance [facility] MEDICARE Advance Directives Documents on File Type Date Recorded Patient Rotary Helper Expl anation Advance Directive-Scan 03/23/2024 2:18 PM LIVING WILL OR HEALT H CARE INSTRRUCTIONS * Full Code (Latest Code Status on File) Date Activated Date Inactivated Comments 04/06/2024 2:16 PM * Full Code Date Activated Date Inactivated Comments 02/10/2024 6:25 AM 04/06/2024 5:25 AM Healthcare Agents on File Name Relationship Healthcare Agent Relationship Communication Silvina Jimenez Healthcare traveling sales representative 1. [facility] Care Rotary Helper Care Teams Human Insights Lead Ads Marketing Relationship Specialty Start Date End Date Billy Dorsey MD [address] [place] [address] [address] [place] [address] PCP - General Family Medicine 02/03/24 oJrge Ruiz MD [address] [place] [address] Primary Furnace Roaster Cardiovascular Disease 01/09/24 Angelina Saldana MD [address] [place] [address] [place] [address] Consulting Provider Surgery, Cardiac 05/01/24
== END 2025-04-23 12:08 | disposition home or self-care (01) ==
LOC: HO.MAMMO 12:07
PROVIDERS: PCP Internal Medicine; Visit Provider Internal Medicine
DX: Z12.31 Encounter for screening mammogram for malignant neoplasm of breast (principal)
CPT/HCPCS: 77063; 77067

== ENCOUNTER → 2025-04-23 12:15 | Outpatient (BNV) | payer MEDICARE, SELFPAY | PROVIDERS: PCP Internal Medicine; Visit Provider Internal Medicine | DX: Z12.31 Encounter for screening mammogram for malignant neoplasm of breast (principal) | CPT/HCPCS: 77063; 77067 ==